=== PATIENT | male | born 1995 | race African-American/Black ===

== ENCOUNTER 2018-08-22 17:39 | Emergency (ER) | payer OTHER ==
[~2018-08-22] VITALS: Ht 177.8 cm; Wt 70.5 kg
[2018-08-22] MEDS ORDERED: ACETAMINOPHEN 500 MG TAB PO ONE (20:00)
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
[2018-08-22] MEDS ORDERED: ALL10TAB28 PO (21:17)
[2018-08-22] MEDS ORDERED: AFRI0.058 (21:17)
[2018-08-22] MEDS ORDERED: KEFL500C17 PO (21:17)
[2018-08-22] MEDS ORDERED: HYDR-3713 PO (21:17)
[2018-08-22 21:27] VITALS: BP 138/77
[2018-08-22] MEDS ORDERED: NORCO, ANEXSIA 5/325MG TABLET (HYDROcodone/ACETAMINOPHEN) PO ONE (22:00)
== END 2018-08-22 22:07 | disposition home or self-care (01) ==
LOC: M ED 17:39
DX: S02.2XXA Fracture of nasal bones, initial encounter for closed fracture (principal); S02.401A Maxillary fracture, unspecified side, initial encounter for closed fracture; Y04.8XXA Assault by other bodily force, initial encounter; Y92.89 Other specified places as the place of occurrence of the external cause

== ENCOUNTER 2019-01-31 08:03 | Emergency (ER) | payer OTHER ==
[~2019-01-31 08:03] MED LIST: AFRI0.058; ALL10TAB29 PO; HYDR-3713 PO; KEFL500C17 PO
[2019-01-31] MEDS ORDERED: IBUPROFEN 600 MG TAB As Ordered ONE (08:59)
[2019-01-31] MEDS ORDERED: IBUP-1022 PO (09:48)
== END 2019-01-31 10:13 | disposition home or self-care (01) ==
LOC: M ED 08:03
DX: J02.9 Acute pharyngitis, unspecified (principal); J06.9 Acute upper respiratory infection, unspecified; Z79.891 Long term (current) use of opiate analgesic; Z79.899 Other long term (current) drug therapy